=== PATIENT | male | born 1955 | race Hispanic/Latino ===

== ENCOUNTER → 2020-10-24 | Day surgery (SDC) | payer MEDICARE ==
[2020-10-21 09:15] LABS: BASOPHILS # (AUTO) 0.1 (0.0-0.1); BASOPHILS % 0.6 % (0.0-1.0); EOSINOPHILS # (AUTO) 0.2 (0.0-0.4); EOSINOPHILS % 2.1 % (0.0-6.0); HEMATOCRIT 45.2 % (38.2-49.6); HEMOGLOBIN 14.3 g/dL (14.0-18.0); LYMPHOCYTES # (AUTO) 1.8 (1.0-3.2); MEAN CORPUSCULAR HEMOGLOBIN 31.6 pg (28-32); MEAN CORPUSCULAR HGB CONC 31.6 g/dL (31-35); MONOCYTES # (AUTO) 0.7 (0.2-0.8); MONOCYTES % 7.4 % (4.4-11.3); NEUTROPHILS # (AUTO) 6.1 (2.1-6.9); NEUTROPHILS % 69.3 % (38.7-80.0); PLATELET COUNT 216 x10e3/uL (140-360); RED BLOOD COUNT 4.52 x10e6/uL (4.3-5.7); RED CELL DISTRIBUTION WIDTH 15.6 % (11.7-14.4)
[~2020-10-24] MED LIST: AC325T PO; ASPIRIN CHEW81 MG PO; ASPIRIN EC81 MG PO; ATORVASTATIN CA20 MG PO; BACTRIM 400-801 EACH PO; CELEBREX100 MG PO; CELEBREX200 MG PO; CILOSTAZOL100 MG PO; CLINDAMYCIN HC300 MG PO; DEXTROSE 50%-WA50 M1 IV; DEXTROSE 50%-WA50 ML IV; DOXYCYCLINE PO; FLC1T PO; FOLIC ACID1 MG PO; FUROSEMIDE40 MG PO; GLIMEPIRIDE2 MG PO; GLIPIZIDE5 MG PO; GLUCOTROL5 MG PO; HDR2V IV; HYDROCODON-ACE1 EA11 PO; INSU100V3 SQ; LACTULOSE20 GM/30 M PO; LIDOCAINE 2% TOP; LISINOPRIL10 MG PO; LISINOPRIL20 MG PO; METFORMIN HCL1000 MG PO; METFORMIN HCL500 MG PO; METHOTREXATE2.5 MG PO; MILK OF MA2400 MG/10 PO; MORPHINE IV; MULTI-VITAMIN1 EACH PO; NITRO-BID1 GM TOP; NITRO-DUR1 EAC2 TP; NORCO 5-325 TA1 EACH PO; NORCO 7.5-3251 EACH PO; NOVOLIN R100 UNIT/1 SC; ONDN2V2 IV; PANTOPRAZOLE 40 MG 10ML VIAL ONE; PLAVIX75 MG PO; PNT40V IV; POLYETHYLENE GL17 GM PO; PREDNISONE5 M1 PO; PREDNISONE5 MG PO; PREVACID15 M1 PO; PROTEIN POWDER454 GM; SANTYL15 GM TOP; SENNA LAXATIVE1 EACH PO; SIMVASTATIN40 MG PO; SODIUM CHLORIDE IV; ZOSYN 3.373.375 GM/5 IVP; [UNRECOGNIZED DRUG - CODE] IV; [UNRECOGNIZED DRUG - CODE] IV; [UNRECOGNIZED DRUG - OTHER] PO
[2020-10-24 13:26] VITALS: BP 86/60
== END | disposition home or self-care (01) ==
LOC: OR 08:29
PROVIDERS: ATTEND Internal Medicine Gastroenterology
DX: K20.90 Esophagitis, unspecified without bleeding (principal); K29.50 Unspecified chronic gastritis without bleeding; K22.8 Other specified diseases of esophagus; K44.9 Diaphragmatic hernia without obstruction or gangrene; K59.09 Other constipation; E11.9 Type 2 diabetes mellitus without complications; I10 Essential (primary) hypertension; R00.1 Bradycardia, unspecified; Z01.810 Encounter for preprocedural cardiovascular examination; Z01.812 Encounter for preprocedural laboratory examination; Z20.822 Contact with and (suspected) exposure to COVID-19; Z79.84 Long term (current) use of oral hypoglycemic drugs; Z89.612 Acquired absence of left leg above knee; Z89.611 Acquired absence of right leg above knee
CPT/HCPCS: 36415 ×2; 43239; 43450; 82948; 85025; 88305; 88312; 93005; C9113; U0002

== ENCOUNTER 2022-03-10 13:43 | Inpatient (IN) | payer MEDICARE, OTHER ==
[~2022-03-10] VITALS: Ht 134.6 cm; Wt 65.9 kg
[~2022-03-10 13:43] MED LIST changes: -PANTOPRAZOLE 40 MG 10ML VIAL ONE
[2022-03-10] MEDS ORDERED: SODIUM CHLORIDE 0.9% 1000ML 1,000 ML IV ONE (14:00)
[2022-03-10 14:19] LABS: BASOPHILS % 0.2 % (0.0-1.0); EOSINOPHILS # (AUTO) 0.1 (0.0-0.4); EOSINOPHILS % 0.5 % (0.0-6.0); HEMATOCRIT 48.1 % (38.2-49.6); HEMOGLOBIN 14.5 g/dL (14.0-18.0); LYMPHOCYTES # (AUTO) 1.1 (1.0-3.2); LYMPHOCYTES % 8.6 % (18.0-39.1); MEAN CORPUSCULAR HEMOGLOBIN 32.2 pg (28-32); MEAN CORPUSCULAR HGB CONC 30.1 g/dL (31-35); MEAN CORPUSCULAR VOLUME 106.9 fL (81-99); MONOCYTES # (AUTO) 0.1 (0.2-0.8); MONOCYTES % 0.8 % (4.4-11.3); NEUTROPHILS # (AUTO) 11.6 (2.1-6.9); NEUTROPHILS % 89.4 % (38.7-80.0); PLATELET COUNT 152 x10e3/uL (140-360); RED CELL DISTRIBUTION WIDTH 16.1 % (11.7-14.4)
[2022-03-10 14:50] LABS: CLARITY,URINE SL CLOUDY (CLEAR); COLOR,URINE STRAW (YELLOW); KETONES,URINE NEGATIVE (NEGATIVE); LEUKOCYTE ESTERASE ,URINE NEGATIVE (NEGATIVE); NITRITE,URINE NEGATIVE (NEGATIVE); PROTEIN,URINE DIPSTICK 2+ (NEGATIVE); URINE UROBILINOGEN 0.2 mg/dL (0.2 - 1)
[2022-03-10 15:07] LABS: BACTERIA,URINE MANY /HPF
[2022-03-10] MEDS ORDERED: SODIUM CHLORIDE 0.9% IV ONE (15:15)
[2022-03-10] MEDS ORDERED: Vancomycin IV 1 GM in SODIUM CHLORIDE 0.9% 250ML 250 ML IV SCH (16:00)
[2022-03-10] MEDS ORDERED: ONDANSETRON HCL INJ 2MG/ML 2ML 2 MG/ML VIAL IV PRN (16:15)
[2022-03-10] MEDS ORDERED: SODIUM CHLORIDE FLUSH 10 ML SYR INJ PRN (16:15)
[2022-03-10 16:23] LABS: ALBUMIN 2.6 g/dL (3.5-5.0); ALBUMIN/GLOBULIN RATIO 0.7 (0.8-2.0); ANION GAP 17.2 mmol/L (8-16); CALCIUM 9.8 mg/dL (8.4-10.2)
[2022-03-10 16:28] LABS: POTASSIUM 5.2 mmol/L (3.5-5.1)
[2022-03-10] MEDS: INSULIN REGULAR, HUMAN 100 UNIT/1 ML SQ SCH ×2 (16:30→21:00)
[2022-03-10 19:00] VITALS: BP 113/73
[2022-03-10] MEDS: SODIUM CHLORIDE 0.9% 1000ML 1,000 ML IV SCH (19:52)
[2022-03-10 20:02] VITALS: BP 123/80
[2022-03-10 20:30] VITALS: BP 107/71
[2022-03-10 21:15] VITALS: BP 124/49
[2022-03-10 23:00] VITALS: BP 137/76
[2022-03-11] VITALS (15 sets, daily range): BP systolic 103–152; BP diastolic 48–92
[2022-03-11 04:51] LABS: BASOPHILS % 0.3 % (0.0-1.0); EOSINOPHILS # (AUTO) 0.2 (0.0-0.4); EOSINOPHILS % 2.2 % (0.0-6.0); HEMATOCRIT 44.3 % (38.2-49.6); HEMOGLOBIN 13.3 g/dL (14.0-18.0); LYMPHOCYTES # (AUTO) 1.3 (1.0-3.2); MEAN CORPUSCULAR HEMOGLOBIN 32.5 pg (28-32); MEAN CORPUSCULAR VOLUME 108.3 fL (81-99); MONOCYTES # (AUTO) 0.1 (0.2-0.8); MONOCYTES % 1.2 % (4.4-11.3); NEUTROPHILS # (AUTO) 8.8 (2.1-6.9); PLATELET COUNT 135 x10e3/uL (140-360); RED BLOOD COUNT 4.09 x10e6/uL (4.3-5.7); RED CELL DISTRIBUTION WIDTH 16.2 % (11.7-14.4)
[2022-03-11 05:08] LABS: ANION GAP 14.4 mmol/L (8-16); CALCIUM 9.8 mg/dL (8.4-10.2); CREATININE, SERUM 3.06 mg/dL (0.72-1.25); POTASSIUM 4.4 mmol/L (3.5-5.1)
[2022-03-11] MEDS: SODIUM CHLORIDE 0.9% 1000ML 1,000 ML IV SCH (05:36)
[2022-03-11] MEDS: INSULIN REGULAR, HUMAN 100 UNIT/1 ML SQ SCH ×4 (07:30→20:47)
[2022-03-11] MEDS ORDERED: ARICEPT5 MG PO (09:08)
[2022-03-11] MEDS ORDERED: HYDROCHLOROTHIA25 MG PO (09:09)
[2022-03-11] MEDS ORDERED: FOLIC ACID0.4 MG PO (09:10)
[2022-03-11] MEDS ORDERED: DIOVAN160 MG PO (09:10)
[2022-03-11] MEDS ORDERED: FUROSEMIDE INJ 10 MG/ML 2 ML VIAL IV ONE (11:00)
[2022-03-11] MEDS: SODIUM CHLORIDE 0.45% 1,000 ML IV SCH (12:19)
[2022-03-11] MEDS: SODIUM BICARBONATE 650 MG TAB PO SCH (16:43)
[2022-03-12] VITALS: BP 122/96
[2022-03-12] MEDS: DEXTROSE 50% SYRINGE 50 ML IV PRN ×2 (00:36→07:52)
[2022-03-12] MEDS: SODIUM CHLORIDE 0.45% 1,000 ML IV SCH (01:21)
[2022-03-12 07:08] LABS: ANION GAP 14.3 mmol/L (8-16); CALCIUM 9.3 mg/dL (8.4-10.2); CREATININE, SERUM 2.29 mg/dL (0.72-1.25); MAGNESIUM 1.9 MG/DL (1.3-2.1); POTASSIUM 4.3 mmol/L (3.5-5.1)
[2022-03-12] MEDS: INSULIN REGULAR, HUMAN 100 UNIT/1 ML SQ SCH ×4 (07:30→21:25)
[2022-03-12 08:17] VITALS: BP 128/75
[2022-03-12 08:27] VITALS: BP 128/75
[2022-03-12] MEDS: SODIUM BICARBONATE 650 MG TAB PO SCH ×2 (09:00→16:32)
[2022-03-12 16:10] VITALS: BP 137/86
[2022-03-12] MEDS: DEXTROSE 5% 1,000 ML IV SCH (16:31)
[2022-03-12 22:48] VITALS: BP 157/71
[2022-03-13 04:00] VITALS: BP 153/79
[2022-03-13] MEDS: DEXTROSE 5% 1,000 ML IV SCH ×2 (06:03→20:39)
[2022-03-13] MEDS: INSULIN REGULAR, HUMAN 100 UNIT/1 ML SQ SCH ×4 (07:30→20:22)
[2022-03-13 07:36] LABS: ANION GAP 14.8 mmol/L (8-16); CALCIUM 8.5 mg/dL (8.4-10.2); CREATININE, SERUM 1.99 mg/dL (0.72-1.25); POTASSIUM 3.8 mmol/L (3.5-5.1)
[2022-03-13 08:00] VITALS: BP 126/68
[2022-03-13] MEDS: SODIUM BICARBONATE 650 MG TAB PO SCH ×2 (09:00→16:12)
[2022-03-13] MEDS ORDERED: Morphine 2mg Syringe 2 MG/ML SYR IV PRN (10:45)
[2022-03-13] MEDS ORDERED: KETAMINE HCL INJ 50 MG/ML 10 ML VIAL ONE (11:51)
[2022-03-13] MEDS ORDERED: POVIDONE IODINE 0.05% 0.05 % ML PO ONE (13:19)
[2022-03-13] MEDS ORDERED: PROPOFOL IV EMULSION 10 MG/ML 20 ML VIAL ONE (13:19)
[2022-03-13] MEDS ORDERED: GLYCOPYRROLATE INJ 0.2 MG/ML VIAL ONE (13:19)
[2022-03-13 13:36] VITALS: BP 109/60
[2022-03-13 16:22] VITALS: BP 141/67
[2022-03-13 20:56] VITALS: BP 156/78
[2022-03-13 21:00] VITALS: BP 156/78
[2022-03-14] VITALS (8 sets, daily range): BP systolic 114–136; BP diastolic 66–82
[2022-03-14] MEDS: INSULIN REGULAR, HUMAN 100 UNIT/1 ML SQ SCH ×4 (07:30→21:14)
[2022-03-14] MEDS: SODIUM BICARBONATE 650 MG TAB PO SCH ×2 (08:41→16:52)
[2022-03-14] MEDS: DEXTROSE 5% 1,000 ML IV SCH ×2 (10:44→21:17)
[2022-03-15] VITALS (8 sets, daily range): BP systolic 136–154; BP diastolic 71–93
[2022-03-15 06:34] LABS: BASOPHILS % 0.2 % (0.0-1.0); EOSINOPHILS # (AUTO) 0.2 (0.0-0.4); EOSINOPHILS % 4.4 % (0.0-6.0); HEMATOCRIT 39.3 % (38.2-49.6); HEMOGLOBIN 12.1 g/dL (14.0-18.0); LYMPHOCYTES # (AUTO) 0.9 (1.0-3.2); LYMPHOCYTES % 18.4 % (18.0-39.1); MEAN CORPUSCULAR HEMOGLOBIN 32.2 pg (28-32); MEAN CORPUSCULAR HGB CONC 30.8 g/dL (31-35); MEAN CORPUSCULAR VOLUME 104.5 fL (81-99); MONOCYTES # (AUTO) 0.2 (0.2-0.8); MONOCYTES % 4.4 % (4.4-11.3); NEUTROPHILS # (AUTO) 3.5 (2.1-6.9); NEUTROPHILS % 72.2 % (38.7-80.0); PLATELET COUNT 96 x10e3/uL (140-360); RED BLOOD COUNT 3.76 x10e6/uL (4.3-5.7); RED CELL DISTRIBUTION WIDTH 15.1 % (11.7-14.4)
[2022-03-15 06:50] LABS: ANION GAP 14.6 mmol/L (8-16); CALCIUM 7.7 mg/dL (8.4-10.2); CREATININE, SERUM 1.72 mg/dL (0.72-1.25); POTASSIUM 3.6 mmol/L (3.5-5.1)
[2022-03-15] MEDS: INSULIN REGULAR, HUMAN 100 UNIT/1 ML SQ SCH ×4 (08:30→22:16)
[2022-03-15] MEDS: SODIUM BICARBONATE 650 MG TAB PO SCH ×2 (08:51→16:59)
[2022-03-15] MEDS: DEXTROSE 5% 1,000 ML IV SCH (09:35)
[2022-03-15] MEDS: SODIUM CHLORIDE 0.9% 1000ML 1,000 ML IV SCH (15:54)
[2022-03-16] VITALS (8 sets, daily range): BP systolic 110–187; BP diastolic 66–93
[2022-03-16] MEDS: SODIUM CHLORIDE 0.9% 1000ML 1,000 ML IV SCH (05:41)
[2022-03-16 06:44] LABS: ANION GAP 16.1 mmol/L (8-16); CALCIUM 7.8 mg/dL (8.4-10.2); CREATININE, SERUM 1.59 mg/dL (0.72-1.25); POTASSIUM 4.1 mmol/L (3.5-5.1)
[2022-03-16] MEDS: INSULIN REGULAR, HUMAN 100 UNIT/1 ML SQ SCH ×4 (07:30→21:31)
[2022-03-16] MEDS: SODIUM BICARBONATE 650 MG TAB PO SCH ×2 (08:25→16:40)
[2022-03-16] MEDS ORDERED: HYDRALAZINE HCL 20 MG/ML VIAL IV PRN (12:30)
[2022-03-17] VITALS: BP 128/67
[2022-03-17] MEDS ORDERED: MAGNESIUM HYDROXIDE 30 ML UDC PEG ONE (00:45)
[2022-03-17 06:39] LABS: ANION GAP 14.5 mmol/L (8-16); CALCIUM 8.3 mg/dL (8.4-10.2); CREATININE, SERUM 1.52 mg/dL (0.72-1.25); POTASSIUM 4.5 mmol/L (3.5-5.1)
[2022-03-17] MEDS: INSULIN REGULAR, HUMAN 100 UNIT/1 ML SQ SCH ×2 (07:30→12:30)
[2022-03-17 07:57] VITALS: BP 155/86
[2022-03-17 08:00] VITALS: BP 155/86
[2022-03-17] MEDS: SODIUM BICARBONATE 650 MG TAB PO SCH (09:46)
[2022-03-17 11:38] VITALS: BP 168/64
[2022-03-17] MEDS ORDERED: ONDANSETRON HCL 4 MG ORAL DISINTEGRATING TAB PO PRN (15:15)
[2022-03-17 15:50] VITALS: BP 149/71
== END 2022-03-17 17:47 | DRG 871 ==
LOC: ER 13:50 → ERHOLD 16:11 → ICU 18:43 → MED/SURG3 03-11 23:14
PROVIDERS: ADMIT Internal Medicine; ATTEND Internal Medicine
PROC: 3E03329 Introduction of Other Anti-infective into Peripheral Vein, Percutaneous Approach (ICD-10-PCS; 2022-03-13)
PROC: 0DB48ZX Excision of Esophagogastric Junction, Via Natural or Artificial Opening Endoscopic, Diagnostic (ICD-10-PCS; principal; 2022-03-13 09:48)
PROC: 0DH68UZ Insertion of Feeding Device into Stomach, Via Natural or Artificial Opening Endoscopic (ICD-10-PCS; 2022-03-13 09:48)
DX: A41.9 Sepsis, unspecified organism (principal); G93.41 Metabolic encephalopathy; N18.6 End stage renal disease; R65.21 Severe sepsis with septic shock; E44.0 Moderate protein-calorie malnutrition; I12.0 Hypertensive chronic kidney disease with stage 5 chronic kidney disease or end stage renal disease; N17.9 Acute kidney failure, unspecified; E87.0 Hyperosmolality and hypernatremia; N39.0 Urinary tract infection, site not specified; R13.12 Dysphagia, oropharyngeal phase; K20.90 Esophagitis, unspecified without bleeding; K22.89 Other specified disease of esophagus; K44.9 Diaphragmatic hernia without obstruction or gangrene; K29.70 Gastritis, unspecified, without bleeding; E11.22 Type 2 diabetes mellitus with diabetic chronic kidney disease; N18.30 Chronic kidney disease, stage 3 unspecified; M06.9 Rheumatoid arthritis, unspecified; Z68.36 Body mass index [BMI] 36.0-36.9, adult; Z99.2 Dependence on renal dialysis; Z89.512 Acquired absence of left leg below knee; Z89.511 Acquired absence of right leg below knee; Z20.822 Contact with and (suspected) exposure to COVID-19; E78.5 Hyperlipidemia, unspecified; Z86.73 Personal history of transient ischemic attack (TIA), and cerebral infarction without residual deficits; E11.65 Type 2 diabetes mellitus with hyperglycemia; I25.10 Atherosclerotic heart disease of native coronary artery without angina pectoris; F03.90 Unspecified dementia, unspecified severity, without behavioral disturbance, psychotic disturbance, mood disturbance, and anxiety; Z79.899 Other long term (current) drug therapy
CPT/HCPCS: 36415; 43239; 43246; 51700; 70450; 71045; 74230; 76770; 80048; 80053; 81001; 82948; 83605; 83735; 84484; 85025; 87040; 87086; 88305; 93005; 94799; 96372; 97139; 99284; J0696; J1940; J2543; J3370; J7030; J7050; J7070; J7799

== ENCOUNTER 2022-04-12 01:04 | Inpatient (IN) | payer MEDICARE ==
[2022-04-12] VITALS (36 sets, daily range): BP systolic 95–135; BP diastolic 45–68
[~2022-04-12] VITALS: Ht 91.4 cm; Wt 76.2 kg
[~2022-04-12 01:04] MED LIST changes: +ARICEPT5 MG PO; +DIOVAN160 MG PO; +FOLIC ACID0.4 MG PO; +HYDROCHLOROTHIA25 MG PO
[2022-04-12] MEDS ORDERED: DIPHENHYDRAMINE HCL 25 MG CAP PO PRN (01:30)
[2022-04-12] MEDS ORDERED: MELATONIN 5 MG TABLET PO PRN (01:30)
[2022-04-12] MEDS ORDERED: SIMETHICONE 80 MG CHEW PO PRN (01:30)
[2022-04-12] MEDS ORDERED: ALBUTEROL/IPRATROPIUM 3 ML NEB NEB PRN (01:30)
[2022-04-12] MEDS ORDERED: DEXTROSE 5%/0.9% SOD CHL 1,000 ML IV SCH (01:30)
[2022-04-12] MEDS ORDERED: DEXTROSE 50% SYRINGE 50 ML IV PRN ×3 (01:30→08:45)
[2022-04-12] MEDS ORDERED: DOCUSATE SODIUM 100 MG CAP PO PRN (01:30)
[2022-04-12] MEDS ORDERED: HYDRALAZINE HCL 20 MG/ML VIAL IV PRN (01:30)
[2022-04-12] MEDS ORDERED: LIDOCAINE 4% PATCH TP PRN (01:30)
[2022-04-12] MEDS ORDERED: BENZONATATE 100 MG CAP PO PRN (01:30)
[2022-04-12] MEDS ORDERED: ONDANSETRON HCL INJ 2MG/ML 2ML 2 MG/ML VIAL IV PRN (01:30)
[2022-04-12] MEDS: MIDODRINE 2.5 MG TAB PEG SCH ×4 (02:20→20:28)
[2022-04-12] MEDS ORDERED: SODIUM CHLORIDE 0.9% 1000ML 1,000 ML IV SCH (03:00)
[2022-04-12 04:46] LABS: BASOPHILS % 0.1 % (0.0-1.0); LYMPHOCYTES # (AUTO) 0.2 (1.0-3.2); LYMPHOCYTES % 2.6 % (18.0-39.1); MEAN CORPUSCULAR HEMOGLOBIN 31.6 pg (28-32); MEAN CORPUSCULAR HGB CONC 30.3 g/dL (31-35); MEAN CORPUSCULAR VOLUME 104.4 fL (81-99); MONOCYTES % 0.4 % (4.4-11.3); NEUTROPHILS # (AUTO) 7.1 (2.1-6.9); NEUTROPHILS % 94.3 % (38.7-80.0); RED BLOOD COUNT 3.16 x10e6/uL (4.3-5.7); RED CELL DISTRIBUTION WIDTH 17.2 % (11.7-14.4)
[2022-04-12 04:51] LABS: PLATELET COUNT 43 x10e3/uL (140-360)
[2022-04-12 05:14] LABS: ANION GAP 19.7 mmol/L (8-16); CARBON DIOXIDE 18 mmol/L (22-29); CHLORIDE 112 mmol/L (98-107); CREATININE, SERUM 3.96 mg/dL (0.72-1.25); POTASSIUM 3.7 mmol/L (3.5-5.1); SODIUM 146 mmol/L (136-145)
[2022-04-12 05:25] LABS: BLOOD UREA NITROGEN 146 mg/dL (7-26)
[2022-04-12 05:27] LABS: GLUCOSE 565 mg/dL (74-118)
[2022-04-12 05:28] LABS: CALCIUM 6.5 mg/dL (8.4-10.2)
[2022-04-12] MEDS: INSULIN REGULAR, HUMAN 100 UNIT/1 ML SQ SCH ×2 (05:49→08:10)
[2022-04-12] MEDS ORDERED: PANTOPRAZOLE SOD 40 MG TABEC PO SCH (07:30)
[2022-04-12] MEDS: PANTOPRAZOLE SODIUM 40 MG SUSPDR.PKT PEG SCH (08:34)
[2022-04-12] MEDS: SODIUM CHLORIDE 0.45% 1,000 ML IV SCH ×2 (09:22→17:28)
[2022-04-12] MEDS: INSULIN REGULAR, HUMAN 3ML VL 100 UNIT in SODIUM CHLORIDE 0.9% 99 ML IV SCH ×2 (10:33)
[2022-04-12] MEDS: ACETAMINOPHEN 325 MG TAB PO PRN (11:40)
[2022-04-12] MEDS ORDERED: CALCIUM CHLORIDE 13.6 MEQ in SODIUM CHLORIDE 0.9% 100 ML IV ONE (15:15)
[2022-04-12] MEDS ORDERED: Vancomycin IV 1 GM in SODIUM CHLORIDE 0.9% 250ML 250 ML IV ONE (16:45)
[2022-04-12 18:55] LABS: ALANINE AMINOTRANSFERASE 20 IU/L (0-55); ALBUMIN 1.4 g/dL (3.5-5.0); ALBUMIN/GLOBULIN RATIO 0.3 (0.8-2.0); ALKALINE PHOSPHATASE 43 IU/L (40-150); ANION GAP 16.1 mmol/L (8-16); BLOOD UREA NITROGEN 131 mg/dL (7-26); CARBON DIOXIDE 20 mmol/L (22-29); CHLORIDE 119 mmol/L (98-107); CREATININE, SERUM 3.21 mg/dL (0.72-1.25); GLUCOSE 100 mg/dL (74-118); POTASSIUM 3.1 mmol/L (3.5-5.1); SODIUM 152 mmol/L (136-145)
[2022-04-12 18:57] LABS: CALCIUM 6.9 mg/dL (8.4-10.2)
[2022-04-12] MEDS: ATORVASTATIN 20 MG TAB PO SCH (20:24)
[2022-04-12] MEDS: POTASSIUM CHLORIDE 20 MEQ TAB CR PO PRN (20:24)
[2022-04-13] VITALS (29 sets, daily range): BP systolic 92–156; BP diastolic 45–87
[2022-04-13] MEDS: ACETAMINOPHEN 325 MG TAB PO PRN ×3 (01:05→20:00)
[2022-04-13] MEDS: SODIUM CHLORIDE 0.45% 1,000 ML IV SCH ×2 (02:00→13:11)
[2022-04-13 04:52] LABS: BASOPHILS % 0.5 % (0.0-1.0); EOSINOPHILS # (AUTO) 0.1 (0.0-0.4); EOSINOPHILS % 2.3 % (0.0-6.0); HEMATOCRIT 29.1 % (38.2-49.6); HEMOGLOBIN 8.9 g/dL (14.0-18.0); LYMPHOCYTES # (AUTO) 0.3 (1.0-3.2); LYMPHOCYTES % 7.5 % (18.0-39.1); MEAN CORPUSCULAR HEMOGLOBIN 31.2 pg (28-32); MEAN CORPUSCULAR HGB CONC 30.6 g/dL (31-35); MEAN CORPUSCULAR VOLUME 102.1 fL (81-99); MONOCYTES # (AUTO) 0.1 (0.2-0.8); MONOCYTES % 1.6 % (4.4-11.3); NEUTROPHILS # (AUTO) 3.3 (2.1-6.9); NEUTROPHILS % 86.5 % (38.7-80.0); RED BLOOD COUNT 2.85 x10e6/uL (4.3-5.7); RED CELL DISTRIBUTION WIDTH 17.3 % (11.7-14.4)
[2022-04-13 04:53] LABS: PLATELET COUNT 21 x10e3/uL (140-360)
[2022-04-13 05:47] LABS: ANION GAP 13.8 mmol/L (8-16); CREATININE, SERUM 2.85 mg/dL (0.72-1.25)
[2022-04-13] MEDS: MIDODRINE 2.5 MG TAB PEG SCH ×3 (05:47→22:00)
[2022-04-13 05:48] LABS: CALCIUM 6.4 mg/dL (8.4-10.2); POTASSIUM 2.8 mmol/L (3.5-5.1)
[2022-04-13] MEDS: POTASSIUM CHLORIDE 20 MEQ TAB CR PO PRN (05:49)
[2022-04-13 06:05] LABS: ALBUMIN 1.3 g/dL (3.5-5.0); ALBUMIN/GLOBULIN RATIO 0.3 (0.8-2.0); MAGNESIUM 2.6 MG/DL (1.3-2.1)
[2022-04-13] MEDS: PANTOPRAZOLE SODIUM 40 MG SUSPDR.PKT PEG SCH (08:02)
[2022-04-13] MEDS: COLLAGENASE 5 GM TUBE TP SCH (08:34)
[2022-04-13] MEDS ORDERED: KCL 20 MEQ PACKET/ ORAL SOLN NG ONE ×2 (10:30→13:55)
[2022-04-13 12:48] LABS: LYMPHOCYTES % (MANUAL) 5 % (19-48); MONOCYTES % (MANUAL) 2 % (3.4-9.0); NEUTROPHILS % (MANUAL) 93 % (40-74)
[2022-04-13 12:49] LABS: ANISOCYTOSIS SLIGHT; HYPOCHROMASIA SLIGHT; PLATELET ESTIMATE MARKEDLY DECREASED; PLATELET MORPHOLOGY COMMENT NORMAL; RBC MORPHOLOGY COMMENT NORMAL
[2022-04-13 13:44] LABS: HEMATOCRIT 30.4 % (38.2-49.6); HEMOGLOBIN 9.3 g/dL (14.0-18.0); MEAN CORPUSCULAR HEMOGLOBIN 31.4 pg (28-32); MEAN CORPUSCULAR HGB CONC 30.6 g/dL (31-35); MEAN CORPUSCULAR VOLUME 102.7 fL (81-99); RED BLOOD COUNT 2.96 x10e6/uL (4.3-5.7); RED CELL DISTRIBUTION WIDTH 17.5 % (11.7-14.4)
[2022-04-13] MEDS ORDERED: EPOETIN ALFA-EPBX 10,000 UNIT/ML VIAL SC ONE (13:50)
[2022-04-13 13:56] LABS: PLATELET COUNT 22 x10e3/uL (140-360)
[2022-04-13 14:03] LABS: INR 1.19; PROTHROMBIN TIME 16.1 seconds (11.9-14.5)
[2022-04-13 14:04] LABS: PARTIAL THROMBOPLASTIN TIME 35.5 seconds (23.8-35.5)
[2022-04-13 14:08] LABS: BILIRUBIN,DIRECT 0.4 mg/dL (0.0-0.5)
[2022-04-13 14:29] LABS: FERRITIN 1982.55 ng/mL (21.81-274.66)
[2022-04-13] MEDS ORDERED: MEROPENEM 500 MG VIAL ONE (15:02)
[2022-04-13 16:15] LABS: EOSINOPHILS % (MANUAL) 1 % (0-7); LYMPHOCYTES % (MANUAL) 11 % (19-48); MONOCYTES % (MANUAL) 1 % (3.4-9.0); NEUTROPHILS % (MANUAL) 87 % (40-74)
[2022-04-13 16:16] LABS: ANISOCYTOSIS SLIGHT; HYPOCHROMASIA SLIGHT; PLATELET ESTIMATE MARKEDLY DECREASED; PLATELET MORPHOLOGY COMMENT NORMAL; RBC MORPHOLOGY COMMENT NORMAL
[2022-04-13] MEDS ORDERED: DEXTROSE 50% SYRINGE 50 ML IV PRN (16:45)
[2022-04-13] MEDS: DEXTROSE 5% 1,000 ML IV SCH (17:23)
[2022-04-13] MEDS ORDERED: CALCIUM CHLORIDE 13.6 MEQ in SODIUM CHLORIDE 0.9% 100 ML IV ONE (17:30)
[2022-04-13] MEDS: ATORVASTATIN 20 MG TAB PO SCH (22:07)
[2022-04-13] MEDS: CALCIUM CARBONATE 500 MG CHEWABLE TABS PO SCH (22:07)
[2022-04-13] MEDS: INSULIN LISPRO 100 UNIT/1 ML 3ML VIAL SQ SCH (22:09)
[2022-04-13] MEDS ORDERED: AMIODARONE HCL 150 MG/100 ML BAG IV ONE (23:30)
[2022-04-13] MEDS ORDERED: AMIODARONE 900MG 500 ML IV ONE (23:42)
[2022-04-13] MEDS ORDERED: AMIODARONE 900MG 900 MG in Premix Bag 1 BAG IV SCH (23:45)
[2022-04-14] VITALS (73 sets, daily range): BP systolic 90–169; BP diastolic 47–127
[2022-04-14] MEDS: DEXTROSE 5% 1,000 ML IV SCH ×3 (03:27→23:22)
[2022-04-14 04:52] LABS: EOSINOPHILS # (AUTO) 0.1 (0.0-0.4); EOSINOPHILS % 3.1 % (0.0-6.0); HEMATOCRIT 30.6 % (38.2-49.6); HEMOGLOBIN 9.2 g/dL (14.0-18.0); LYMPHOCYTES # (AUTO) 0.3 (1.0-3.2); MEAN CORPUSCULAR HEMOGLOBIN 31.6 pg (28-32); MEAN CORPUSCULAR HGB CONC 30.1 g/dL (31-35); MEAN CORPUSCULAR VOLUME 105.2 fL (81-99); MONOCYTES # (AUTO) 0.1 (0.2-0.8); MONOCYTES % 5.6 % (4.4-11.3); NEUTROPHILS # (AUTO) 1.1 (2.1-6.9); NEUTROPHILS % 68.2 % (38.7-80.0); RED BLOOD COUNT 2.91 x10e6/uL (4.3-5.7); RED CELL DISTRIBUTION WIDTH 17.9 % (11.7-14.4)
[2022-04-14 04:55] LABS: PLATELET COUNT 12 x10e3/uL (140-360)
[2022-04-14 05:11] LABS: ALBUMIN 1.2 g/dL (3.5-5.0); ALBUMIN/GLOBULIN RATIO 0.3 (0.8-2.0); ANION GAP 14.7 mmol/L (8-16); CREATININE, SERUM 2.44 mg/dL (0.72-1.25); POTASSIUM 3.7 mmol/L (3.5-5.1)
[2022-04-14 05:12] LABS: CALCIUM 6.8 mg/dL (8.4-10.2)
[2022-04-14] MEDS: MIDODRINE 2.5 MG TAB PEG SCH ×2 (05:44→13:46)
[2022-04-14] MEDS ORDERED: AMIODARONE 900MG 900 MG in Premix Bag 1 BAG IV SCH (05:46)
[2022-04-14 07:07] LABS: BAND NEUTROPHILS % (MANUAL) 3 %; EOSINOPHILS % (MANUAL) 3 % (0-7); LYMPHOCYTES % (MANUAL) 14 % (19-48); MONOCYTES % (MANUAL) 3 % (3.4-9.0); NEUTROPHILS % (MANUAL) 77 % (40-74)
[2022-04-14 07:18] LABS: PLATELET ESTIMATE MARKEDLY DECREASED
[2022-04-14 07:21] LABS: PLATELET MORPHOLOGY COMMENT NORMAL
[2022-04-14 07:22] LABS: RBC MORPHOLOGY COMMENT NORMAL
[2022-04-14] MEDS: PANTOPRAZOLE SODIUM 40 MG SUSPDR.PKT PEG SCH (07:47)
[2022-04-14] MEDS: INSULIN LISPRO 100 UNIT/1 ML 3ML VIAL SQ SCH (07:52)
[2022-04-14] MEDS: ACETAMINOPHEN 325 MG TAB PO PRN (08:42)
[2022-04-14] MEDS: CALCIUM CARBONATE 500 MG CHEWABLE TABS PO SCH ×3 (08:43→21:14)
[2022-04-14] MEDS: COLLAGENASE 5 GM TUBE TP SCH (08:43)
[2022-04-14 11:05] LABS: CLARITY,URINE CLOUDY (CLEAR); COLOR,URINE YELLOW (YELLOW); KETONES,URINE NEGATIVE (NEGATIVE); LEUKOCYTE ESTERASE ,URINE TRACE (NEGATIVE); NITRITE,URINE NEGATIVE (NEGATIVE); PROTEIN,URINE DIPSTICK 2+ (NEGATIVE); URINE UROBILINOGEN 0.2 mg/dL (0.2 - 1)
[2022-04-14] MEDS ORDERED: AMIODARONE HCL 200 MG TAB PO ONE (11:15)
[2022-04-14] MEDS: INSULIN REGULAR, HUMAN 3ML VL 100 UNIT in SODIUM CHLORIDE 0.9% 99 ML IV SCH ×2 (11:24)
[2022-04-14] MEDS: LINEZOLID 600 MG/D5W 300ML 300 ML IV SCH ×2 (11:26→21:34)
[2022-04-14 11:38] LABS: BACTERIA,URINE FEW /HPF; RBC,URINE 0-5 /HPF (0-5); WBC,URINE (MAN) 0-5 /HPF (0-5)
[2022-04-14 11:39] LABS: YEAST,URINE MANY
[2022-04-14 14:43] LABS: EOSINOPHILS # (AUTO) 0.1 (0.0-0.4); EOSINOPHILS % 7.7 % (0.0-6.0); HEMATOCRIT 31.9 % (38.2-49.6); HEMOGLOBIN 9.6 g/dL (14.0-18.0); LYMPHOCYTES # (AUTO) 0.5 (1.0-3.2); LYMPHOCYTES % 39.2 % (18.0-39.1); MEAN CORPUSCULAR HEMOGLOBIN 31.5 pg (28-32); MEAN CORPUSCULAR HGB CONC 30.1 g/dL (31-35); MEAN CORPUSCULAR VOLUME 104.6 fL (81-99); MONOCYTES # (AUTO) 0.1 (0.2-0.8); MONOCYTES % 8.5 % (4.4-11.3); NEUTROPHILS # (AUTO) 0.5 (2.1-6.9); NEUTROPHILS % 39.2 % (38.7-80.0); RED BLOOD COUNT 3.05 x10e6/uL (4.3-5.7); RED CELL DISTRIBUTION WIDTH 17.8 % (11.7-14.4)
[2022-04-14 14:50] LABS: PLATELET COUNT 43 x10e3/uL (140-360)
[2022-04-14] MEDS ORDERED: FILGRASTIM-AAFI 300 MCG/0.5 ML SYRINGE SQ ONE (16:15)
[2022-04-14] MEDS: LORAZEPAM 0.5 MG TAB PO PRN (17:21)
[2022-04-14] MEDS: Morphine 2mg Syringe 2 MG/ML SYR IV PRN (19:20)
[2022-04-14] MEDS ORDERED: DONEPEZIL HCL 5 MG TAB PO SCH (21:00)
[2022-04-14] MEDS: MIDODRINE HCL 5 MG TABLET PEG SCH (21:14)
[2022-04-14] MEDS: ATORVASTATIN 20 MG TAB PO SCH (21:14)
[2022-04-15] VITALS (37 sets, daily range): BP systolic 98–148; BP diastolic 39–96
[2022-04-15] MEDS: Morphine 2mg Syringe 2 MG/ML SYR IV PRN ×2 (02:42→06:31)
[2022-04-15] MEDS: MIDODRINE HCL 5 MG TABLET PEG SCH ×2 (06:40→14:00)
[2022-04-15 06:54] LABS: BASOPHILS % 0.7 % (0.0-1.0); EOSINOPHILS # (AUTO) 0.2 (0.0-0.4); HEMATOCRIT 34.2 % (38.2-49.6); HEMOGLOBIN 10.5 g/dL (14.0-18.0); LYMPHOCYTES # (AUTO) 0.7 (1.0-3.2); LYMPHOCYTES % 47.8 % (18.0-39.1); MEAN CORPUSCULAR HEMOGLOBIN 31.7 pg (28-32); MEAN CORPUSCULAR HGB CONC 30.7 g/dL (31-35); MEAN CORPUSCULAR VOLUME 103.3 fL (81-99); MONOCYTES # (AUTO) 0.1 (0.2-0.8); MONOCYTES % 10.3 % (4.4-11.3); NEUTROPHILS # (AUTO) 0.4 (2.1-6.9); NEUTROPHILS % 27.2 % (38.7-80.0); RED BLOOD COUNT 3.31 x10e6/uL (4.3-5.7); RED CELL DISTRIBUTION WIDTH 17.9 % (11.7-14.4)
[2022-04-15 07:20] LABS: PLATELET COUNT 47 x10e3/uL (140-360)
[2022-04-15 07:34] LABS: ALBUMIN 1.3 g/dL (3.5-5.0); ALBUMIN/GLOBULIN RATIO 0.3 (0.8-2.0); ANION GAP 14.4 mmol/L (8-16); CREATININE, SERUM 1.86 mg/dL (0.72-1.25); POTASSIUM 4.4 mmol/L (3.5-5.1)
[2022-04-15 07:37] LABS: CALCIUM 6.7 mg/dL (8.4-10.2)
[2022-04-15 08:33] LABS: EOSINOPHILS % (MANUAL) 10 % (0-7); LYMPHOCYTES % (MANUAL) 41 % (19-48); MONOCYTES % (MANUAL) 10 % (3.4-9.0); NEUTROPHILS % (MANUAL) 39 % (40-74); PLATELET ESTIMATE MARKEDLY DECREASED; PLATELET MORPHOLOGY COMMENT NORMAL; RBC MORPHOLOGY COMMENT ABNORMAL
[2022-04-15] MEDS: PANTOPRAZOLE SODIUM 40 MG SUSPDR.PKT PEG SCH (08:39)
[2022-04-15] MEDS: CALCIUM CARBONATE 500 MG CHEWABLE TABS PO SCH ×2 (08:40→15:00)
[2022-04-15] MEDS: LINEZOLID 600 MG/D5W 300ML 300 ML IV SCH (08:40)
[2022-04-15] MEDS: DEXTROSE 5% 1,000 ML IV SCH (08:41)
[2022-04-15] MEDS: LORAZEPAM 0.5 MG TAB PO PRN (08:50)
[2022-04-15] MEDS: COLLAGENASE 5 GM TUBE TP SCH (08:50)
[2022-04-15] MEDS: INSULIN REGULAR, HUMAN 3ML VL 100 UNIT in SODIUM CHLORIDE 0.9% 99 ML IV SCH ×2 (09:10)
[2022-04-15] MEDS: ACETAMINOPHEN 325 MG TAB PO PRN (15:07)
== END 2022-04-15 19:14 | disposition hospice, inpatient (51) | DRG 871 ==
LOC: ICU 01:25
PROVIDERS: ADMIT Internal Medicine; ATTEND Internal Medicine
PROC: 30233R1 Transfusion of Nonautologous Platelets into Peripheral Vein, Percutaneous Approach (ICD-10-PCS; principal; 2022-04-14)
PROC: 3E03329 Introduction of Other Anti-infective into Peripheral Vein, Percutaneous Approach (ICD-10-PCS; 2022-04-14)
DX: A41.9 Sepsis, unspecified organism (principal); J69.0 Pneumonitis due to inhalation of food and vomit; L89.154 Pressure ulcer of sacral region, stage 4; R65.21 Severe sepsis with septic shock; N17.9 Acute kidney failure, unspecified; E87.0 Hyperosmolality and hypernatremia; N39.0 Urinary tract infection, site not specified; D61.818 Other pancytopenia; D68.9 Coagulation defect, unspecified; I82.621 Acute embolism and thrombosis of deep veins of right upper extremity; Z68.44 Body mass index [BMI] 60.0-69.9, adult; Z66 Do not resuscitate; Z51.5 Encounter for palliative care; F03.90 Unspecified dementia, unspecified severity, without behavioral disturbance, psychotic disturbance, mood disturbance, and anxiety; Z93.1 Gastrostomy status; E11.22 Type 2 diabetes mellitus with diabetic chronic kidney disease; I12.9 Hypertensive chronic kidney disease with stage 1 through stage 4 chronic kidney disease, or unspecified chronic kidney disease; N18.30 Chronic kidney disease, stage 3 unspecified; Z79.4 Long term (current) use of insulin; Z89.522 Acquired absence of left knee; Z89.521 Acquired absence of right knee; E11.65 Type 2 diabetes mellitus with hyperglycemia; E87.8 Other disorders of electrolyte and fluid balance, not elsewhere classified; E83.51 Hypocalcemia; E86.0 Dehydration; M06.9 Rheumatoid arthritis, unspecified; Z20.822 Contact with and (suspected) exposure to COVID-19; E87.6 Hypokalemia; D50.0 Iron deficiency anemia secondary to blood loss (chronic); M19.90 Unspecified osteoarthritis, unspecified site; K76.0 Fatty (change of) liver, not elsewhere classified; Z74.01 Bed confinement status; D69.59 Other secondary thrombocytopenia; Z79.899 Other long term (current) drug therapy
CPT/HCPCS: 36415; 71045; 76700; 76770; 80048; 80053; 81001; 82248; 82607; 82728; 82746; 82948; 83010; 83036; 83540; 83615; 83735; 84100; 84132; 84145; 84155; 84466; 85007; 85025; 85027; 85045; 85379; 85384; 85610; 85730; 86900; 87040; 93005; 93970; 94799; 96372; 99251; J1817; J2020; J2185; J2270; J3370; J7030; J7042; J7050; J7070; P9034